=== PATIENT | female | born 1970 | race Caucasian/White ===

== ENCOUNTER 2017-08-09 03:38 | Emergency (ER) | payer MEDICAID ==
[~2017-08-09] VITALS: Ht 157.5 cm; Wt 63.5 kg
[2017-08-09 04:43] LABS: Urine Bacteria FEW /hpf (None Seen); Urine Blood 2+ /uL (Negative); Urine Specific Gravity 1.003 (1.001-1.035); Urine WBC 65 /hpf (0 - 5)
[2017-08-09 05:10] VITALS: BP 136/93
== END 2017-08-09 05:25 | disposition home or self-care (01) ==
LOC: ER 03:40
DX: N39.0 Urinary tract infection, site not specified (principal)
CPT/HCPCS: 36415; 81001; 81025; 84702